=== PATIENT | female | born 1930 | race Caucasian/White ===

== ENCOUNTER 2016-10-17 11:18 | Inpatient (IN) | payer MEDICARE ==
[2016-10-17 11:38] LABS: Hematocrit 33 % (35-47); Hemoglobin 10.5 g/dl (12.0-16.0); Mean Corpuscular HGB Conc 32 g/dl (31-36); Mean Corpuscular Hemoglobin 30 pg (27-31); Mean Corpuscular Volume 92 fL (80-97); Mean Platelet Volume 8 um3 (7.4-10.4); Red Blood Count 3.54 10^6/ul (4.0-5.4); Red Cell Distribution Width 16 % (10.5-15); White Blood Count 15.1 10^3/ul (3.5-10.8)
[2016-10-17 11:41] LABS: Add Diff/Slide Review? Slide Review Added; Comments Flag Yes
[2016-10-17 11:56] LABS: Albumin 3.5 g/dL (3.2-5.2); BUN/Creatinine Ratio 19.7 (8-20); Calcium 8.7 mg/dL (8.6-10.3); EGFR Non-African American 36.6 (>60); Globulin 3.2 g/dL (2-4); Potassium 3.9 mmol/L (3.5-5.0); Total Bilirubin 0.7 mg/dL (0.2-1.0); Total Protein 6.7 g/dL (6.4-8.9)
[2016-10-17 11:57] LABS: Troponin I 0.01 ng/mL (<0.04)
--- NOTE | 2016-10-17 12:03 | RAD ---
INDICATION: Stroke symptoms COMPARISON: None. TECHNIQUE: Contiguous axial sections of the brain were obtained from the skull base to the vertex without contrast. FINDINGS: Evaluation is limited due to patient motion artifact. The ventricles exhibit mild symmetric involutional changes. Involving the white matter of the left frontal lobe there is an ill-defined area of focal hypoattenuation measuring 1.7 x 3.8 cm (image 18 of 32). There is an septal malacia involving the cortex of the frontal parietal junction on the left (image 20 of 32). Involving the right subinsular ribbon there is loss of jeffery-white matter differentiation (image 16 of 32). There is no definite extra-axial hemorrhage. There is a mild degree of hyperostosis frontalis interna. The calvarium is otherwise intact. There is mild right and moderate left maxillary sinus mucosal thickening and mild mucosal thickening of the bilateral sphenoid sinuses and ethmoid air cells. IMPRESSION: 1. Age indeterminant 1.7 x 3.8 cm hypodensity involving the white matter of the left frontal lobe could represent an age indeterminate infarction. 2. There is loss of the jeffery-white matter differentiation involving the right subinsular cortex. A potential acute to subacute infarction is not excluded based on this CT imaging. 3. The encephalomalacia involving the cortex at the left frontal parietal junction as a more chronic appearance. 4. There is no definite extra-axial hemorrhage. 5. There is no prior imaging of the brain available for comparison so the chronicity of the above findings lacks certainty. If the patient is exhibiting focal neurologic deficits MRI of the brain is recommended.
--- NOTE | 2016-10-17 12:17 | RAD ---
INDICATION: Altered mental status COMPARISON: None. TECHNIQUE: Single AP portable view of the chest was obtained. FINDINGS: Image quality is compromised due to the relative inferiority of a portable chest x-ray. There is mild to moderate cardiomegaly. The pulmonary vasculature is engorged and indistinct. Lungs are otherwise adequately aerated. Visualized bones are normal for the patient's age. IMPRESSION: In the correct clinical setting these portable chest x-ray findings could be compatible with mild cardiogenic pulmonary edema.
[2016-10-17 13:27] LABS: Urine Bacteria Absent (Absent); Urine Bilirubin Negative (Negative); Urine Glucose Negative (Negative); Urine Nitrite Negative (Negative)
[2016-10-17] MEDS ORDERED: Aspirin SUPP* 300 MG PR ONE (14:01)
[2016-10-17] MEDS ORDERED: Dextrose 50% Syringe 50 ML* 25 GM/50 ML SYRINGE IV PUSH PRN (14:32)
[2016-10-17 14:56] LABS: C Reactive Protein 6.12 mg/L (< 5.00)
--- NOTE | 2016-10-17 15:24 | ED ---
jarod Jay Timothy, scribed for Stan Murphy MD on 10/17/16 at 1147 . Neurological HPI - HPI Summary HPI Summary: Level V Caveat, Pt is largely unresponsive and is a poor historian. Krista Gracia is an 86 yo female presenting to [facility] as unresponsive. She was found in her bed. She received coumadin [employer]. She is moving her right leg/ arm with no movement on the left side.She was last seen going to the bathroom at 0300 this morning. Her Hx includes DM II, HLD, HTN. She lives with family. - History of Current Complaint Stated Complaint: POSS STROKE Time Seen by Provider: 10/17/16 11:31 Hx Obtained From: Patient Hx From Patient Unobtainable Due To: Other - unresponsive Onset/Duration: Sudden Onset Timing: Constant Onset Severity: Moderate Current Severity: Moderate Character: Other: - unresponsive - Allergy/Home Medications Allergies/Adverse Reactions: Allergies Allergy/AdvReac Type Severity Reaction Status Date / Time No Known Allergies Allergy Verified 10/09/14 09:45 PMH/Surg Hx/FS Hx/Imm Hx Endocrine/Hematology History: Reports: Hx Diabetes - TYPE 2 Cardiovascular History: Reports: Hx Hypercholesterolemia, Hx Hypertension - WELL CONTROLLED Sensory History: Reports: Hx Cataracts - BILATERAL, Hx Contacts or Glasses - GLASSES Denies: Hx Hearing Aid Opthamlomology History: Reports: Hx Cataracts - BILATERAL, Hx Contacts or Glasses - GLASSES - Cancer History Hx Chemotherapy: No Hx Radiation Therapy: No - Surgical History Surgery Procedure, Year, and Place: [facility] 30 YRS AGO [place]. HYSTERECTOMY [place]. LEFT KNEE SCOPING [place] 1999 Hx Anesthesia Reactions: No Infectious Disease History: No Infectious Disease History: Denies: Traveled Outside the [place] in Last 30 Days - Family History Known Family History: Positive: Cardiac Disease Negative: Hypertension, Diabetes - Social History Alcohol Use: None Substance Use Type: Reports: None Smoking Status (MU): Never Smoked Tobacco Review of Systems - ROS Summary Review of Systems Summary: LEVEL V CAVEAT: PT IS LARGELY UNRESPONSIVE AND UNABLE TO REVIEW SYSTEMS. Neurological: Other - unresponsive All Other Systems Reviewed And Are Negative: No Physical Exam - Summary Physical Exam Summary: LEVEL V CAVEAT: PT IS UNRESPONSIVE Triage Information Reviewed: Yes Vital Signs On Initial Exam: Initial Vitals Temp Pulse Resp BP Pulse Ox 96.8 F 65 23 162/79 96 10/17/16 11:25 02/12/17 11:25 10/17/16 11:25 10/17/16 11:25 10/17/16 11:25 Vital Signs Reviewed: Yes Appearance: Positive: No Pain Distress, Ill-Appearing - UNRESPONSIVE, UNABLE TO FOLLOW COMMANDS. Flacid on left side, Obese Skin: Positive: Warm, Skin Color Reflects Adequate Perfusion, Dry Head/Face: Positive: Normal Head/Face Inspection Neurological: Positive: Other - flacid on left side Psychiatric: Positive: Patient Uncooperative for Exam - unresponsive Diagnostics - Vital Signs Vital Signs Temp Pulse Resp BP Pulse Ox 10/17/16 11:25 96.8 F 65 23 162/79 96 - Laboratory Lab Results: Lab Results 10/17/16 Range/Units 11:30 WBC 15.1 H (3.5-10.8) 10^3/ul RBC 3.54 L (4.0-5.4) 10^6/ul Hgb 10.5 L (12.0-16.0) g/dl Hct 33 L (35-47) % MCV 92 (80-97) fL MCH 30 (27-31) pg MCHC 32 (31-36) g/dl RDW 16 H (10.5-15) % Plt Count 230 (150-450) 10^3/ul MPV 8 (7.4-10.4) um3 Neut % (Auto) 81.7 (38-83) % Lymph % (Auto) 11.1 L (25-47) % [place] % (Auto) 4.7 (1-9) % Eos % (Auto) 0.3 (0-6) % Baso % (Auto) 2.2 H (0-2) % Absolute Neuts (auto) 12.4 H (1.5-7.7) 10^3/ul Absolute Lymphs (auto) 1.7 (1.0-4.8) 10^3/ul Absolute Monos (auto) 0.7 (0-0.8) 10^3/ul Absolute Eos (auto) 0 (0-0.6) 10^3/ul Absolute Basos (auto) 0.3 H (0-0.2) 10^3/ul Absolute Nucleated RBC 0.05 10^3/ul Nucleated RBC % 0.3 Result Diagrams: 10/17/16 11:30 10/17/16 11:30 Lab Statement: Any lab studies that have been ordered have been reviewed, and results considered in the medical decision making process. - Radiology CXR Xray Interpretation: Positive (See Comments) - IMPRESSION: In the correct clinical setting these portable chest x-ray findings could be compatible with mild cardiogenic pulmonary edema. Radiology Interpretation Completed By: Radiologist - CT Brain CT Interpretation: Positive (See Comments) - IMPRESSION: 1. Age indeterminant 1.7 x 3.8 cm hypodensity involving the white matter of the left frontal lobe could represent an age indeterminate infarction. 2. There is loss of the jeffery- white matter differentiation involving the right subinsular cortex. A potential acute to subacute infarction is not excluded based on this CT imaging. 3. The encephalomalacia involving the cortex at the left frontal parietal junction as a more chronic appearance. 4. There is no definite extra-axial hemorrhage. 5. There is no prior imaging of the brain available for comparison so the chronicity of the above findings lacks certainty. If the patient is exhibiting focal neurologic deficits MRI of the brain is recommended. CT Interpretation Completed By: Radiologist - EKG 1145 Cardiac Rate: NL EKG Rhythm: Sinus Rhythm EKG Interpretation: NSR @ 61 BPM, normal EKG NIH Scale - NIH Scale Level of Consciousness: Repeated or Painful Stimulation Ask Patient the Month and His/Her Age: Neither Correct/Aphasic Ask Pt to Open/Close Eyes and Silverlight Developer/Release Non-Paretic Hand: Neither Correctly Best Gaze (Only Horizontal Eye Movement): Normal Visual Field Testing: No Visual Loss Facial Paresis-Pt to Smile & Close Eyes or Grimace Symmetry: Normal/Symmetrical Motor Function - Right Arm: Effort Against [place] Motor Function - Left Arm: No Movement Motor Function - Right Leg: Effort Against [place] Motor Function - Left Leg: No Movement Limb Ataxia-Must be out of Proportion to Weakness Present: Absent Sensory (Use Pinprick to Test Arms/Legs/Trunk/Face): Pinprick Less on Affected Best Language (Describe Picture, Name Items): Mute/Global Aphasia Dysarthria (Read Several Words): Unintelligible or Mute Extinction and Inattention: No Abnormality Total Score: 24 Course/Dx - Course Assessment/Plan: Krista Gracia is an 86 yo female BIBA to [facility] due to unresponsivenes. She really wouldn't follow commands for me but moved her right side spontaneously. Sometimes she opened her eyes but not to command. After CT she was a bit brighter and seemed to follow commands some. After review of her imaging studies and lab reports, and discussion with Dr. Worley, and consult with Dr. Blackmon, she will be admitted to [place] - Diagnoses Provider Diagnoses: CVA (cerebral vascular accident) - Physician Notifications Discussed Care of Patient With: 1256 - Dr. Worley (neurologist) - Discussed Pt condition, agrees to evaluate Pt. 1330 - Dr. Blackmon (hospitalist) - Discussed Pt condition, will admit Pt. - Critical Care Time Critical Care Time: 30-74 min Discharge - Discharge Plan Condition: Stable Disposition: ADMITTED TO [facility] The documentation as recorded by the jarod valente Timothy accurately reflects the service I personally performed and the decisions made by me, Stan Murphy MD.
[2016-10-17] MEDS: Insulin LISPRO* 1 UNITS UNIT SUBCUT SCH (18:24)
--- NOTE | 2016-10-17 18:33 | RAD ---
HISTORY: Mental status COMPARISONS: Same day CT of the brain that shows loss of jeffery-white matter differentiation the right hemisphere TECHNIQUE: The following sequences were obtained of the head: Sagittal T1-weighted images, axial T2-weighted images, axial FLAIR images, axial susceptibility weighted images, axial T1-weighted images. Additionally, axial diffusion-weighted images were obtained with calculated apparent diffusion coefficients.. FINDINGS: HEMORRHAGE: There is no evidence of extra-axial hemorrhage. MASSES/SHIFT: There is no mass or shift. EXTRA-AXIAL SPACES/MENINGES: There are no extra-axial fluid collections. SULCI AND VENTRICLES: There are symmetric involutional changes appropriate for the patient's age. CEREBRUM: Diffusion-weighted imaging shows a large right hemisphere infarction involving the frontal, parietal and temporal lobes in the distribution of the right MCA. There is an septal malacia involving the left frontal and parietal lobes. BRAINSTEM: There are no focal parenchymal abnormalities. CEREBELLUM: There are no focal parenchymal abnormalities. The cerebellar tonsils are normal in size and position. SELLA: The sella is normal. PINEAL: The pineal region is clear. CP ANGLE/TEMPORAL BONES: The labyrinthine structures are grossly normal. VESSELS: Normal flow-voids are noted within the visualized vertebral vasculature. DIFFUSION ABNORMALITIES: There are no diffusion abnormalities. PARANASAL SINUSES/MASTOIDS: The paranasal sinuses are clear. ORBITS: The orbits are unremarkable. BONES AND SOFT TISSUE: No bone or soft tissue abnormalities are noted. 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
--- NOTE | 2016-10-17 20:24 | CONS ---
NEUROLOGY CONSULTATION: DATE OF CONSULT: 10/17/16 REQUESTING PROVIDER: Dr. Rene Murphy in the emergency department. REASON FOR CONSULT: Stroke. HISTORY OF PRESENT ILLNESS: Krista Gracia is an 86-year-old woman with a history of diabetes, hypertension, and atrial fibrillation who was recently taken off warfarin 2 weeks ago due to epistaxis requiring transfusion, who was in her usual state of health yesterday. Per her son and [id number] who were at the bedside, she was last heard to be going to the bathroom with her walker at approximately 3 a.m. this morning. They looked in on her at approximately 8:30, but it appeared that she was still sleeping and then when she had not gotten up at approximately 10 a.m., they went in to try to wake her and realized they could not do so and called 911. On arrival here, she was found to have left hemiparesis and has been poorly responsive. Apparently, approximately 2 weeks ago, she developed significant epistaxis that was difficult to control with repeated packing and other procedures done by Dr. Harrison in [place]. Her warfarin was discontinued and she was actually admitted to [facility] because of this epistaxis. She eventually required 2 units of blood when her hemoglobin went down to 7 and she also required a recent transfusion of iron. Yesterday, however, she was acting normally per her son and he was optimistic that she was getting back on the right track. PAST MEDICAL HISTORY: 1. Diabetes. 2. Hypertension. 3. Atrial fibrillation. 4. 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 MEDICATIONS: 1. Aspirin 81 mg daily. 2. Vitamin D 2 tablets at bedtime. 3. Metformin 850 mg q.a.m. 4. Diltiazem 360 mg daily. 5. Simvastatin 20 mg daily. ALLERGIES: No known drug allergies. FAMILY HISTORY: Her mother from a stroke. There is a family history of cancers as well. SOCIAL HISTORY: She is a nonsmoker and nondrinker. She lives with her son and [id number] who are her healthcare proxies. She has an advanced directive, which indicates she is a do not resuscitate and in discussion with her family today also would not want to be intubated. REVIEW OF SYSTEMS: As per HPI. Otherwise negative. PHYSICAL EXAM: Vital Signs: Temperature 98.1, blood pressure of 162/79 on arrival and currently 153/93. Heart rate is 58. Oxygen saturation is 97% on nasal cannula. EKG is reviewed and shows that she is in a normal sinus rhythm currently. On general examination, she is an elderly appearing woman lying with her eyes closed. She does not open her eyes to voice or pain, but is noted to sometimes open them spontaneously. Her heart revealed a regular rate and rhythm with no murmurs, rubs, or gallops. Lungs are clear to auscultation anteriorly. There were no obvious carotid bruits. She has lower extremity edema. On neurologic exam, she does not open her eyes to command and is nonverbal. She does not follow commands to stick out her tongue. She has a right gaze preference, which cannot be overcome with the oculocephalic maneuver. There was no obvious blink to threat in her visual jacob. Pupils were equal, round, and reactive from 4 to 2 mm bilaterally. There was left lower facial weakness with flattening of the nasolabial fold. On motor examination, she had a flaccid hemiparesis in the left upper extremity with no withdrawal to noxious stimulation. In the left lower extremity, she had triple flexion response to noxious stimulation and with attempt for tone to be tested. She actively resisted the examiner moving her right upper and lower extremities without any apparent weakness on that side. She briskly responded to noxious stimulation in the right upper and lower extremities and grimaced to pain with noxious on the left. Coordination could not be tested. Her reflexes were 2+ in the upper and lower extremities, absent at the ankles with a briskly upgoing toe on the left. DIAGNOSTIC STUDIES/LAB DATA: Laboratory data reviewed includes a CBC notable for white count of 15.1 with 12.4 absolute neutrophil count, hemoglobin of 10.5 , hematocrit of 33 and normal platelet count. INR is 0.93. Chemistry panel notable for creatinine of 1.37, BUN of 27, glucose of 135, and a slightly low AST of 12. Urinalysis is negative for infection. Noncontrast head CT was personally reviewed and shows an area of hypodensity in the right insula, but there is also diffuse loss of the jeffery-white junction in the right MCA territory involving the frontal and parietal regions. In addition , there is a questionable dense right MCA sign in the sylvian fissure. IMPRESSION: Krista Gracia is an 86-year-old woman with a history of atrial fibrillation, currently not on warfarin due to recent epistaxis requiring transfusion, who presents with left hemiparesis and right gaze preference consistent with a large right hemispheric stroke. She appears to have some early changes suggestive of stroke on her CT scan and was also last heard to be normal greater than 3 hours ago, therefore, was not a candidate for TPA. She was last seen normal more than 6 hours previously and is not a candidate for any advanced therapy such as endovascular intervention. In addition, her renal function is somewhat depressed and I do not think it will change house attendant to get a CT angiogram and so, she will be admitted to the hospital for further care. She will undergo a carotid ultrasound and we should get a repeat CAT scan tomorrow to further assess the size of her right hemispheric stroke which will help us in further guiding the family in decision making. At this time, it appears that she suffered a large stroke, which may be devastating for her. She can be started on aspirin IN at this time. She should come in on telemetry monitoring and have an echocardiogram at this time unless the family decides not to pursue full care for her. Most likely mechanism is cardioembolic in nature given her history of atrial fibrillation and recent discontinuation of anticoagulation. I discussed briefly the patient's wishes with the family and she has expressed that she would not want to be resuscitated. We also discussed whether she has ever expressed her views on whether she would want to be ventilated and they feel that she would not want this either. This was communicated to the hospitalist, VIOLETA Coe, who will be admitting the patient. Thank you for this consultation. I will follow the patient along during her hospital course. [id number]/[facility] #: [id number] NA
--- NOTE | 2016-10-17 20:41 | HP ---
ADMISSION HISTORY AND PHYSICAL: DATE OF ADMISSION/DICTATION: 10/17/16 PRIMARY CARE PROVIDER: Dr. Cruz. CONSULTING NEUROLOGIST: Dr. Worley. ADMITTING PROVIDER: VIOLETA Smith SUPERVISING PHYSICIAN: Dr. Lisa Dominguez. * (DICTATED BY VIOLETA SMITH) CHIEF COMPLAINT: Unresponsiveness. HISTORY OF PRESENT ILLNESS: This is an 86-year-old female with a history of paroxysmal atrial fibrillation, saq-juiosqq-qclqyghkv diabetes, hypertension, hyperlipidemia, and coronary artery disease without history of MA, who presents after her family was unable to awake her this morning. The patient was last seen normal at approximately 3 a.m. when her son and gmlmrqvu-ki-uoi heard her get up to go to the bathroom and she is able to ambulate independently with her rolling walker. At approximately 8 o'clock or so this morning, they checked on her and she seemed to be sleeping and then by about 9 or 10 o'clock this morning when breakfast was prepared, they went in to wake her up and she was not responsive. EMS was subsequently called and the patient was brought to the emergency department for further evaluation. The patient was recently hospitalized at [facility] due to severe epistaxis and required a blood transfusion and iron infusions. She was anticoagulated for her history of AFib, but her Coumadin was discontinued due to the severity of these nosebleeds. This occurred about 2 weeks ago. She has otherwise been in good health according to her family and states that yesterday she was up and around and feeling quite well. She has had no other recent illnesses or acute complaints. The patient has had a prior CVA that presented with right-sided weakness and she had resolved nearly completely following that event. She currently lives with her son and evkazhat-nz-gwr. PAST MEDICAL HISTORY: 1. Paroxysmal atrial fibrillation, previously anticoagulated with Coumadin, but discontinued after severe epistaxis. 2. History of mild coronary artery disease per drum sander without history of MA or PCI. 3. Chronic kidney disease, stage 3. 4. Hypertension. 5. Hyperlipidemia. 6. Pqy-goxjcdj-dfpkfchsl diabetes. PAST SURGICAL HISTORY: 1. Left knee surgery. 2. Hysterectomy. 3. Left breast benign lumpectomy. 4. Tonsillectomy. 5. Cholecystectomy. 6. Cataracts. HOME MEDICATIONS: 1. Iron 65 mg p.o. daily. 2. Aspirin 81 mg p.o. daily. 3. Vitamin D3 2000 units p.o. daily. 4. Diltiazem 360 mg p.o. daily. 5. Metformin 850 mg p.o. daily. 6. Simvastatin 200 mg p.o. daily. SOCIAL HISTORY: The patient lives with her son and ephljrpz-hk-qwh. No history of smoking or regular alcohol consumption. REVIEW OF SYSTEMS: Unable to obtain review of systems from the patient. Please see HPI. PHYSICAL EXAMINATION GENERAL: This is an elderly female accompanied by multiple family members, who seems to be lying comfortably, but largely unresponsive in a hospital stretcher. INITIAL VITAL SIGNS: Temperature 96.8 degrees Fahrenheit, pulse 65 beats per minute, respiratory rate 23 per minute, oxygen saturation 96% on 2 L, and blood pressure 162/79 mmHg. HEENT: Head is normocephalic, atraumatic. Mucous membranes are significantly dry. NECK: Supple, free of lymphadenopathy. No JVD appreciated. RESPIRATORY: Lungs are clear to auscultation without wheezes, crackles, or rhonchi. CARDIOVASCULAR: Heart has a regular rate and rhythm without murmurs, rubs, or gallops. ABDOMEN: Soft with bowel sounds present. NEURO: The patient opens her eyes once during her exam and looks around the room, but does not speak. 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 Her left side appears to be flaccid. Unable to perform remainder of neuro exam. DIAGNOSTIC STUDIES/LAB DATA: CBC shows white blood cell count of 5100, hemoglobin of 10.5 g/dL, and a platelet count of 230,000. INR of 0.93. Comprehensive metabolic panel shows a sodium of 138 mmol/L, potassium 3.9 mmol/L , BUN of 27, creatinine 1.37. Random glucose of 135 mg/dL. Transaminases and total bilirubin are within normal limits. Troponin negative at 0.01. Urinalysis is significant for 1+ blood, but otherwise unremarkable. Imaging: Chest x-ray demonstrates some mild cardiomegaly and perhaps some mild pulmonary venous congestion. No other acute infiltrates or other acute process appreciated. CT of the brain shows an old infarct in the left frontal region. There is evidence of marked parietal swelling with absence of foci providing evidence of likely a large MCA ischemic stroke. EKG shows a sinus rhythm without evidence of ischemia. ASSESSMENT AND PLAN: This is an 86-year-old female with paroxysmal atrial fibrillation, chronic kidney disease, hypertension, hyperlipidemia, non-insulin - dependent diabetes, who presents unresponsive with evidence of large right- sided cerebrovascular accident. 1. Cerebrovascular accident - neurologist, Dr. Worley, has evaluated the patient in the emergency department. She is unfortunately outside the window for tPA by a significant amount. There is evidence of significant right parietal swelling in the distribution of the right middle cerebral artery notable on CT. Provide rectal aspirin at this time. The patient's deficits are quite severe. Her exam seems to be waxing and waning, but at the time of my exam, she was able to follow some commands but is not alert and does seem to have flaccid paralysis on the left side. The patient's son and wwyiynzh-ad-gjx who are her healthcare proxies are present at bedside and confirmed DNR and DNI status. Discussed prognosis in some detail. The patient has made her expressed wishes known that she would not want any artificial nutrition. We will plan to continue with rectal aspirin at this time, and if her level of alertness seems to improve, we will request a formal swallow evaluation. At this time, we will maintain maintenance fluids. We will hold all antihypertensives and maintain the bed flat in order to promote cerebral perfusion. We will evaluate with carotid ultrasound and echocardiogram and maintain on continuous telemetry. 2. Paroxysmal atrial fibrillation - anticoagulation was recently discontinued about 2 weeks ago after severe epistaxis. Her cerebrovascular accident is likely embolic in origin. We will monitor on telemetry. We will hold any antihypertensive at this time and she does appear to be in a normal sinus rhythm. 3. Leukocytosis - the patient has no evidence of acute infection. This might just be a leukemoid reaction to the acute situation. We will not empirically start antibiotics. We will plan to repeat labs tomorrow. We will add on a CRP and procalcitonin and if significantly elevated, we will be diligent to evaluate for sources of infection. 4. Diabetes - we will check fingersticks every 6 hours to maintain appropriate glycemic control and cover with sliding scale insulin as needed to avoid severe hyperglycemia. 5. Hypertension - holding antihypertensives to maintain systolic pressures less than 185 mmHg. 6. Hyperlipidemia. 7. Code status - the patient is DNR/DNI with known wishes to avoid artificial nutrition. 8. Healthcare proxy is her son, Tab Gracia, with the backup proxy being Deepa Gracia and completed MOLST form with both of them at the time of admission. 9. DVT prophylaxis: We will order SCDs, but avoid any chemical prophylaxis in the setting of large cerebrovascular accident. DISPOSITION: The patient is being admitted inpatient for CVA. Prognosis appears to be quite poor at this time. Anticipate length of stay to be greater than 2 days. VIOLETA SMITH CC: Dr. Cruz* [id number]/[facility] #: [id number] NA
[2016-10-18] MEDS: Insulin LISPRO* 1 UNITS UNIT SUBCUT SCH ×4 (01:17→18:17)
[2016-10-18 07:14] LABS: Hematocrit 29 % (35-47); Hemoglobin 9.2 g/dl (12.0-16.0); Mean Corpuscular HGB Conc 32 g/dl (31-36); Mean Corpuscular Hemoglobin 30 pg (27-31); Mean Corpuscular Volume 92 fL (80-97); Mean Platelet Volume 8 um3 (7.4-10.4); Red Cell Distribution Width 16 % (10.5-15); White Blood Count 10.4 10^3/ul (3.5-10.8)
[2016-10-18 07:15] LABS: Add Diff/Slide Review? Slide Review Added; Comments Flag Yes
[2016-10-18 07:31] LABS: BUN/Creatinine Ratio 17.6 (8-20); Calcium 8.1 mg/dL (8.6-10.3); EGFR African American 52.3 (>60); EGFR Non-African American 40.6 (>60)
--- NOTE | 2016-10-18 07:44 | PN ---
Subjective Date of Service: 10/18/16 Interval History: Pt unresponsive on evaluation, appears comfortable. Per son she seemed to respond to him this morning when he asked "are you warm enough" and he said she nodded. Right arm movement noted. The son and I discussed the goal for care and he would like to see how she does the next 24 hours and if she continues to be unresponsive tomorrow or she clinically starts to decline he would like comfort care. He does not want her to go down for CT brain today as it will not gear changer. He asks for no aggressive measures per her wishes on the MOLST form. Objective Active Medications: Aspirin (Aspirin Supp*) 300 mg OK DAILY [facility] Dextrose (D50w Syringe 50 Ml*) 12.5 gm IV PUSH .FOR FS < 60 - SS PRN PRN Reason: FS < 60 Lactated Ringer's (Lactated Ringers 1000 Ml Bag*) 1,000 mls @ 100 mls/hr IV PER RATE [facility] Last Admin: 10/18/16 04:18 Dose: 100 mls/hr Insulin Human Lispro (Humalog*) 0 units SUBCUT Q6HR [facility] PRN Reason: Protocol Last Admin: 10/18/16 05:40 Dose: Not Given Vital Signs 10/17/16 10/17/16 10/17/16 14:30 15:11 15:54 Temperature 98.8 F 97.6 F Pulse Rate 61 59 62 Respiratory 21 20 26 Rate Blood Pressure 183/73 165/78 137/92 (mmHg) O2 Sat by Pulse 98 98 Oximetry 10/17/16 10/17/16 10/17/16 16:17 16:20 20:00 Temperature 99.2 F Pulse Rate 62 Respiratory 26 22 30 Rate Blood Pressure 137/92 (mmHg) O2 Sat by Pulse 98 Oximetry 10/17/16 10/17/16 10/18/16 20:58 23:43 03:48 Temperature 99.4 F 98.3 F 97.8 F Pulse Rate 70 72 77 Respiratory 20 19 20 Rate Blood Pressure 155/72 137/67 151/60 (mmHg) O2 Sat by Pulse 95 95 98 Oximetry Oxygen Devices in Use Now: Nasal Cannula Appearance: obese elderly female laying unresponsive in bed with eyes closed in NAD. Eyes: No Scleral Icterus, PERRLA Ears/Nose/Mouth/Throat: NL Teeth, Lips, Gums, Mucous Membranes Moist Neck: NL Appearance and Movements; NL JVP Respiratory: Symmetrical Chest Expansion and Respiratory Effort, Clear to Auscultation Cardiovascular: NL Sounds; No Murmurs; No JVD, RRR, No Edema Abdominal: NL Sounds; No Tenderness; No Distention Extremities: No Edema Skin: No Rash or Ulcers, No Nodules or Sclerosis Neurological: - - is not responded to verbal or painful stimuli; noted right arm movement Lines/Tubes/Other Access: Clean, Dry and Intact Peripheral IV Result Diagrams: 10/18/16 06:59 10/18/16 06:59 Additional Lab and Data: Lab Results 10/17/16 Range/Units 11:30 WBC 15.1 H (3.5-10.8) 10^3/ul RBC 3.54 L (4.0-5.4) 10^6/ul Hgb 10.5 L (12.0-16.0) g/dl Hct 33 L (35-47) % MCV 92 (80-97) fL MCH 30 (27-31) pg MCHC 32 (31-36) g/dl RDW 16 H (10.5-15) % Plt Count 230 (150-450) 10^3/ul MPV 8 (7.4-10.4) um3 Neut % (Auto) 81.7 (38-83) % Lymph % (Auto) 11.1 L (25-47) % [place] % (Auto) 4.7 (1-9) % Eos % (Auto) 0.3 (0-6) % Baso % (Auto) 2.2 H (0-2) % Absolute Neuts (auto) 12.4 H (1.5-7.7) 10^3/ul Absolute Lymphs (auto) 1.7 (1.0-4.8) 10^3/ul Absolute Monos (auto) 0.7 (0-0.8) 10^3/ul Absolute Eos (auto) 0 (0-0.6) 10^3/ul Absolute Basos (auto) 0.3 H (0-0.2) 10^3/ul Absolute Nucleated RBC 0.05 10^3/ul Nucleated RBC % 0.3 Microbiology and Other Data: Microbiology 10/17/16 14:35 Nasal Screen MRSA (PCR)(EVY) - Final Nasal Mrsa Positive Assess/Plan/Problems-Billing Assessment: 86 yo female with a PMH of paroxysmal afib recently taken off AC secondary to severe epistaxis, hx prior CVA, HTN, CKD, Dm-2 who presented to the emergency department 10/17 unresponsive found to have a large hemispheric infarction in the right MCA - Patient Problems (1) CVA (cerebral vascular accident) Comment: - MRI linda showing a large hemispheric infarction in the right MCA - TTE, carotid u/s pending - Neuro checks - Suction prn - pt is at risk for not managing her secretions. - continue rectal ASA (2) Afib Comment: - rate currently controlled - Metoprolol prn (3) HTN (hypertension) Comment: - not currently on BP meds at home. SBP 130-140's. (4) CKD (chronic kidney disease) Comment: at baseline (5) DNR (do not resuscitate) Comment: DNI/No artifical nutrition (6) DVT prophylaxis Status and Disposition: inpatient with CVA.
[2016-10-18] MEDS: Aspirin SUPP* 300 MG PR SCH (09:20)
[2016-10-18] MEDS ORDERED: Metoprolol Tartrate IV* 1 MG/ML 5 ML VIAL IV PRN (11:47)
--- NOTE | 2016-10-18 15:01 | ECHO ---
Patient: LAISHA CHILD [facility] Rec#: [id number] : 1930 Date: 10/18/2016 Age: 86y Height: 172.7 cm / 68.0 in Weight: 108.9 kg / 240.0 lbs Sex: F BSA: 2.21 Room#: 437 Admit Date#: 10/17/2016 Type: Inpatient Referring: Saran Velázquez Reading: Cuate Zarco MD Plastic Tool Maker: Fatmata Vera RN RDCS CC: Chas Cruz MD Transthoracic Echocardiogram Indication: CVA BP: 151/60 HR: 61 Rhythm: NSR with PVCs Findings History: CAD, PAF, HTN, dyslipidemia, DM, CKD Technical Comments: The study is technically limited due to patient body habitus. The study was technically limited due to the patient's inability to lay in the left lateral decubitus position. Completed at 1400. Left Ventricle: The left ventricular chamber size is normal. There is diffuse global hypokinesis of the left ventricle. Left ventricular systolic function is at the lower limits of normal. The estimated ejection fraction is 50-55%. Abnormal left ventricular diastolic filling is observed, consistent with impaired relaxation. Left Atrium: The left atrium is mildly dilated. Right Ventricle: The right ventricular chamber size and systolic function are within normal limits. Right Atrium: The right atrium is mildly dilated. Aortic Valve: The aortic valve is trileaflet. The aortic valve leaflets are mildly thickened. There is a trace of aortic regurgitation. There is no evidence of aortic stenosis. Mitral Valve: There is mitral annular calcification. The mitral valve leaflets are mildly thickened. There is mild mitral regurgitation. There is no evidence of mitral stenosis. Tricuspid Valve: The tricuspid valve leaflets are normal. There is mild tricuspid regurgitation. There is evidence of mild pulmonary hypertension. Pulmonic Valve: The pulmonic valve structure is not well visualized. There is a trace pulmonic regurgitation. There is no pulmonic stenosis. Pericardium: There is no significant pericardial effusion. A pericardial fat pad is visualized. Aorta: There is no dilatation of the ascending aorta. There is no dilatation of the aortic arch. The aortic root is normal in size. Pulmonary Artery: The main pulmonary artery is not well visualized. Venous: The inferior vena cava appears normal in size. There is a greater than 50% respiratory change in the inferior vena cava dimension. Conclusions Left ventricular systolic function is at the lower limits of normal. The estimated ejection fraction is 50-55%. There is diffuse global hypokinesis of the left ventricle. The right ventricular chamber size and systolic function are within normal limits. There is a trace of aortic regurgitation. There is no evidence of aortic stenosis. There is mild mitral regurgitation. There is mild tricuspid regurgitation. There is no significant pericardial effusion. Measurements Name Value Normal Range RVDdMajor (2D) 2.4 cm (2.2 - 4.4) RAd ISD 4CH 5.6 cm (3.4 - 4.9) RA (A4C)W 3.9 cm (2.9 - 4.6) IVSd (2D) 1 cm (0.6 - 1) LVPWd (2D) 1 cm (0.6 - 1) LVIDd (2D) 4.6 cm (3.6 - 5.4) LVIDs (2D) 3.7 cm - LV FS (2D) 20 % (25 - 45) Aortic Annulus 2.1 cm (1.4 - 2.6) Ao root diameter (2D) 3 cm (2.1 - 3.5) Ascending Ao 3 cm (2.1 - 3.4) Aortic arch 3.1 cm (1.8 - 3.4) LA dimension (AP) 2D 3.2 cm (2.3 - 3.8) LAd ISD 4CH 5.7 cm (2.9 - 5.3) LA ISD 4CH W 4.4 cm (2.5 - 4.5) Name Value Normal Range LA ESV SP 4CH (A/L) 52 ml - LA ESV SP 2CH (A/L) 89 ml - LA ESV BP (A/L) 69 ml - LA ESV BP (A/L) index 31 ml/m2 - LA ESV SP 4CH (MOD) 50 ml - LA ESV SP 2CH (MOD) 85 ml - Name Value Normal Range MV E-wave Vmax 0.78 m/sec - MV deceleration time 348 msec - MV A-wave Vmax 1.1 m/sec - MV E:A ratio 0.7 ratio - LV septal e' Vmax 0.06 m/sec - LV lateral e' Vmax 0.07 m/sec - LV E:e' septal ratio 13 ratio - LV E:e' lateral ratio 11.1 ratio - Name Value Normal Range AV Vmax 1.6 m/sec - AV peak gradient 10 mmHg - LVOT Vmax 0.99 m/sec - ABDIRIZAK Vmax 0.83 m/sec - Name Value Normal Range TR Vmax 2.9 m/sec - TR peak gradient 34 mmHg - RAP 3 mmHg - RVSP 37 mmHg - IVC diameter 1.8 cm - Name Value Normal Range PV Vmax 1.1 m/sec -
--- NOTE | 2016-10-18 17:07 | RAD ---
INDICATION: CVA. Carotid stenosis. COMPARISON: MRI brain same date TECHNIQUE: Transverse and longitudinal scans of the carotid and vertebral arteries were performed with jeffery scale, color Doppler, and spectral Doppler imaging. Stenosis criteria is based on flow velocities that correlate with visual internal carotid artery diameter (NASCET criteria) FINDINGS: Right carotid: There is scant calcific plaque involving the bifurcation. There is no spectral broadening. The peak systolic velocity of the internal carotid artery is 65 cm/s and the peak diastolic velocity 10 cm/s. The ICA/CCA ratio is calculated at 0.9. This corresponds to a less than 50% diameter stenosis. The actual degree of stenosis is closer to 0. Left carotid: There is scant calcific plaque involving the bifurcation. There is no spectral broadening. The peak systolic velocity of the internal carotid artery is 100 cm/s and the peak diastolic velocity 23 cm/s. The ICA/CCA ratio is calculated at 1.4. This corresponds to a less than 50% diameter stenosis. Right vertebral: Right vertebral waveforms are normal and the flow is antegrade. Left vertebral: Left vertebral waveforms are normal and the flow is antegrade. IMPRESSION: NO EVIDENCE OF A HEMODYNAMICALLY SIGNIFICANT STENOSIS. CPT II Codes: 3100F RS
[2016-10-19] MEDS: Insulin LISPRO* 1 UNITS UNIT SUBCUT SCH ×3 (00:26→12:05)
--- NOTE | 2016-10-19 03:28 | PN ---
PROGRESS NOTE: DATE OF EVALUATION: 10/18/16 - ROOM #437 HISTORY: There were no acute overnight events. The patient remains essentially as she was yesterday, minimally responsive but occasionally perking up and seeming to make eye contact in her right visual field. Her son thinks that she nodded yes to him when he asked if she was warm enough earlier this morning. MEDICATIONS: 1. Aspirin 300 mg p.o. daily. 2. Humalog sliding scale. 3. Lactated Ringer's 100 mL per hour. 4. Metoprolol 5 mg IV q.6 p.r.n. PHYSICAL EXAMINATION: Vital Signs: Temperature 97.8 with a T-max of 99.8 this morning at 7:30, blood pressure 150/75, heart rate is 73, and oxygen saturation 99% on room air. On general exam, she is an elderly appearing female, asleep in her bed with her head turned towards the left. She did not wake to loud voice or to sternal rub , but then did open her eyes when her right arm was moved. She did not follow commands to show me her thumb, but she did put up her right index finger. She appeared to be trying to protrude her tongue, but did not reliably follow this command either. She continues to have a right gaze preference that is not overcome by the oculocephalic maneuver. She has a left homonymous hemianopsia. There is left lower facial weakness and the left arm is plegic. She has normal to increased tone in the left lower extremity with a briskly upgoing toe and a triple flexion response to noxious stimulation. 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 She grimaces to noxious stimulation in the left upper and lower extremities, but less briskly than on the right. DATA: Her white count is down to 10.4 from 15.1 today. Her transthoracic echocardiogram shows that the left ventricular systolic function is at the lower limits of normal with an estimated EF of 50% to 55%. There is diffuse global hypokinesis of the left ventricle. A bubble study was not performed. She underwent MRI of the brain yesterday which confirms the presence of a large right MCA territory infarction without any hemorrhagic components. IMPRESSION: An 86-year-old woman with large right MCA stroke resulting in diminished level of consciousness as well as left hemiparesis and right gaze preference. Today, she is largely the same clinically as she was yesterday. I discussed with the family that one of the reasons for her depressed level of consciousness may be the fact that she now has bihemispheric stroke given that she had an old left frontal stroke in the past. She has been fairly clear in her wishes regarding resuscitation and intubation, but the family is now considering the possibility of artificial nutrition. I have explained that she has had a very large stroke and may not regain the level of alertness necessary to even participate with evaluation for swallowing study and if she does, it is very likely that she will have significant dysphagia. They will begin to think about whether they would want to place any kind of a feeding tube such as nasogastric tube or if they will go more towards comfort measures for her. I told them we could see how she does over the next 48 hours and be able to gauge things better at that point. They may benefit from palliative care consult at this point regardless. I will continue to follow her along. [id number]/[facility] #: [id number] NA
[2016-10-19] MEDS: Aspirin SUPP* 300 MG PR SCH (08:44)
--- NOTE | 2016-10-19 16:20 | PN ---
Progress Note - Progress Note Note: Family meeting with Son, Tab, HCP and several family members. Discussed grim prognosis and no chance of a meaningful recovery. Family all agreeable to comfort measures only. IVFs discontinued.
--- NOTE | 2016-10-19 17:36 | PN ---
Subjective Date of Service: 10/19/16 Interval History: patient continues to be mostly unresponsive with occasionally opening her eyes. per son she is less responsive today. Family meeting tonight with palliative care physician Dr. Castelan and decision was made for comfort care On exam pt is mostly unresponsive, opens eyes to some verbal and noxious stimuli but is not responsive and closes her eyes again. Family at bedside, weepy. Pt appears comfortable in NAD. Objective Vital Signs 10/18/16 10/19/16 10/19/16 20:00 00:04 04:19 Temperature 98.5 F 98.9 F 98.3 F Pulse Rate 72 72 64 Respiratory 26 20 16 Rate Blood Pressure 154/76 143/75 141/71 (mmHg) O2 Sat by Pulse 94 98 97 Oximetry 10/19/16 10/19/16 10/19/16 07:50 08:00 11:28 Temperature 98.3 F 98.6 F Pulse Rate 73 69 Respiratory 20 18 20 Rate Blood Pressure 163/70 165/74 (mmHg) O2 Sat by Pulse 98 97 Oximetry 10/19/16 16:04 Temperature 98.7 F Pulse Rate 68 Respiratory 20 Rate Blood Pressure 157/62 (mmHg) O2 Sat by Pulse 95 Oximetry Oxygen Devices in Use Now: Nasal Cannula Appearance: eldelry female laying in bed unresponsive; opens eyes spontaneuously Eyes: PERRLA Respiratory: Symmetrical Chest Expansion and Respiratory Effort, Clear to Auscultation Cardiovascular: NL Sounds; No Murmurs; No JVD, RRR, No Edema Abdominal: NL Sounds; No Tenderness; No Distention Neurological: - - opens eyes to nxious stimuli Lines/Tubes/Other Access: Clean, Dry and Intact Peripheral IV Result Diagrams: 10/18/16 06:59 10/18/16 06:59 Additional Lab and Data: Lab Results 10/17/16 Range/Units 11:30 WBC 15.1 H (3.5-10.8) 10^3/ul RBC 3.54 L (4.0-5.4) 10^6/ul Hgb 10.5 L (12.0-16.0) g/dl Hct 33 L (35-47) % MCV 92 (80-97) fL MCH 30 (27-31) pg MCHC 32 (31-36) g/dl RDW 16 H (10.5-15) % Plt Count 230 (150-450) 10^3/ul MPV 8 (7.4-10.4) um3 Neut % (Auto) 81.7 (38-83) % Lymph % (Auto) 11.1 L (25-47) % [place] % (Auto) 4.7 (1-9) % Eos % (Auto) 0.3 (0-6) % Baso % (Auto) 2.2 H (0-2) % Absolute Neuts (auto) 12.4 H (1.5-7.7) 10^3/ul Absolute Lymphs (auto) 1.7 (1.0-4.8) 10^3/ul Absolute Monos (auto) 0.7 (0-0.8) 10^3/ul Absolute Eos (auto) 0 (0-0.6) 10^3/ul Absolute Basos (auto) 0.3 H (0-0.2) 10^3/ul Absolute Nucleated RBC 0.05 10^3/ul Nucleated RBC % 0.3 Microbiology and Other Data: Microbiology 10/17/16 14:35 Nasal Screen MRSA (PCR)(EVY) - Final Nasal Mrsa Positive Assess/Plan/Problems-Billing Assessment: 86 yo female with a PMH of paroxysmal afib recently taken off AC secondary to severe epistaxis, hx prior CVA, HTN, CKD, Dm-2 who presented to the emergency department 10/17 unresponsive found to have a large hemispheric infarction in the right MCA - Patient Problems (1) CVA (cerebral vascular accident) Comment: - MRI linda showing a large hemispheric infarction in the right MCA - plan for comfort measures. (2) Comfort measures only status (3) DNR (do not resuscitate) Comment: comfort care (4) DVT prophylaxis Status and Disposition: inpatient with large CVA. Plan for comfort care measures
--- NOTE | 2016-10-19 20:35 | CONS ---
PALLIATIVE CARE CONSULTATION: DATE OF CONSULT: 10/19/16 PRIMARY CARE PHYSICIAN: Chas Cruz MD. REQUESTING PHYSICIAN FOR PALLIATIVE CARE CONSULTATION: Kelli Echevarria NP. HISTORY OF PRESENT ILLNESS: This is an 86-year-old female with a past medical history of atrial fibrillation, off anticoagulation; CAD; CKD stage III; hypertension; and diabetes who presented to the emergency room on the with unresponsiveness. The patient is normally independent of her ADLs and lives with her son. The son states that around 3 a.m. he heard her go to the bathroom and she tends to sleep in and they would check on her and they would hear her sleeping and then around 10 o'clock, they went to wake her up for breakfast and she was unresponsive at that time. She was brought to the emergency room for further evaluation. On arrival to the emergency room, the patient had a CAT scan done that showed marked parietal swelling with absence of foci providing evidence of a likely large MCA ischemic stroke. Initially, the patient's mental status was waxing and waning and on admission was able to follow some commands, but limited alertness and left-sided flaccid paralysis. The son, Tab Gracia, is the healthcare proxy, did change her MOLST to DNR/DNI on admission. Of note, the patient was on Coumadin for her atrial fibrillation as of 2 weeks ago, but had a significant nosebleed that required hospitalization at [place] and she required transfusion and she has been off Coumadin for the past 2 weeks. Since her admission, her mental status has deteriorated as the son and the daughter are both in the room today and saying that her alertness and responsiveness have been more depressed today. Yesterday , she was able to open her eyes and shake her head yes or no in response to questions and she was able to squeeze her left hand. Today, she has opened her eyes with minimal interactive or responsiveness. She has not done any tracking today as she was yesterday. Due to her minimally responsiveness, she has been unable to take any p.o. When I discussed her quality of life, they stated that she was very independent, did not want anyone to help her with her activities of daily living. She did not want anyone to ever help her with her ADLs, and that she did not want to go to a snf; and, when I discussed artificial nutrition, they stated that this was not something that she would ever want. I discussed my concern about her poor prognosis and the progression of her depressed mental status and the family is aware that her prognosis is grim and she may not survive this hospitalization. As mentioned, the patient does open her eyes, but unable to answer questions appropriately and is minimally responsive. PAST MEDICAL HISTORY: 1. Paroxysmal atrial fibrillation, off anticoagulation. 2. CAD. 3. CKD stage III. 4. Hypertension from hyperlipidemia. 5. Diabetes. INPATIENT HOSPITAL MEDICATIONS: 1. Aspirin 300 mg per rectal daily. 2. Lactated Ringer's 50 mL an hour. 3. Metoprolol IV 5 mg every 6 hours as needed for heart rate greater than 100. ALLERGIES: No known drug allergies. SOCIAL HISTORY: As mentioned, the patient was living with her son, Tab Gracia , who is the healthcare proxy and his . She was independent of her ADLs. She was not driving. Her MOLST form is DNR/DNI, limited medical interventions, with a trial of IV fluids. She has 8 children and, as mentioned, is currently living with her son. No history of tobacco, alcohol, or illicit drug use. REVIEW OF SYSTEMS: Unable to obtain due to the patient's unresponsiveness. PHYSICAL EXAM: Temperature 98.6, pulse rate 69, respiratory rate 20, oxygen saturation 97% on 2 L, blood pressure 165/74. General: The patient is unresponsive, does not awake to verbal or tactile stimuli, appears comfortable. Her son and her daughter are at the bedside. HEENT: Pupils are reactive, equal , and anicteric. Head is normocephalic. Oropharynx: Mucous membranes are dry. Cardiac: Regular rate and rhythm with a soft systolic murmur. Respiratory : Diminished breath sounds with poor respiratory effort. Abdomen: Soft, nondistended. Extremities: No clubbing, cyanosis, or edema. Neurologic: The patient is alert and oriented x0. She is able to squeeze her left hand. No other motor movement of her lower extremities or her left hand. DIAGNOSTIC STUDIES/LAB DATA: White count 10.4, hemoglobin 9.2, hematocrit 29, platelets 200. INR 0.93. Sodium 136, potassium 4, chloride 104, bicarb 28, BUN 22, creatinine 1.25, glucose 116. Radiographic data: Brain MRI shows large hemispheric infarction in the distribution of the right MCA. ASSESSMENT: This is an 86-year-old female with a past medical history of atrial fibrillation, off anticoagulation; chronic kidney disease who presents to the emergency room on the 12th being unresponsive. Her MRI findings have found a large hemispheric infarction in the distribution of the right MCA. She is minimally responsive. I spoke with the family at length regarding poor prognosis and that without IV hydration and artificial nutrition that her life expectancy is limited to a few days. The family would like to speak with the rest of their family members and re-convene regarding discontinuing her IV fluids and disposition plans if they are going to attempt to take her home with hospice with 24-hour care. I am going to meet back with them and the family at 4 o'clock today. Thank you for this consultation. I will follow along with you. PATIENT TIME: Greater than 90 minutes were spent doing this consultation, more than half the time spent in direct patient contact. CC: Chas Cruz MD* [id number]/[facility] #: [id number] MTDD
[2016-10-20] MEDS ORDERED: Morphine INJ* 2 MG/ML 1 ML CARPUJECT IV PRN (10:38)
[2016-10-20] MEDS ORDERED: Atropine 1% (ORAL/SL)* 15 ML BTL SL PRN (10:39)
[2016-10-20] MEDS ORDERED: LORazepam TAB(*) 1 MG PO PRN (10:39)
--- NOTE | 2016-10-20 10:43 | PN ---
Subjective Date of Service: 10/20/16 Interval History: patient laying in bed with eyes closed. unresponsive on my exam. py did open her eyes and daughter asked a question and the patient clearly nodded then fell unresponsive again. Patient appears very comfortable in NAD Objective Vital Signs 10/19/16 10/19/16 10/19/16 11:28 16:04 19:58 Temperature 98.6 F 98.7 F Pulse Rate 69 68 Respiratory 20 20 20 Rate Blood Pressure 165/74 157/62 (mmHg) O2 Sat by Pulse 97 95 Oximetry Appearance: eldelry female laying in bed in NAD. mostly unresponsive Eyes: No Scleral Icterus, PERRLA Respiratory: Symmetrical Chest Expansion and Respiratory Effort, Clear to Auscultation Cardiovascular: NL Sounds; No Murmurs; No JVD Result Diagrams: 10/18/16 06:59 10/18/16 06:59 Additional Lab and Data: Lab Results 10/17/16 Range/Units 11:30 WBC 15.1 H (3.5-10.8) 10^3/ul RBC 3.54 L (4.0-5.4) 10^6/ul Hgb 10.5 L (12.0-16.0) g/dl Hct 33 L (35-47) % MCV 92 (80-97) fL MCH 30 (27-31) pg MCHC 32 (31-36) g/dl RDW 16 H (10.5-15) % Plt Count 230 (150-450) 10^3/ul MPV 8 (7.4-10.4) um3 Neut % (Auto) 81.7 (38-83) % Lymph % (Auto) 11.1 L (25-47) % [place] % (Auto) 4.7 (1-9) % Eos % (Auto) 0.3 (0-6) % Baso % (Auto) 2.2 H (0-2) % Absolute Neuts (auto) 12.4 H (1.5-7.7) 10^3/ul Absolute Lymphs (auto) 1.7 (1.0-4.8) 10^3/ul Absolute Monos (auto) 0.7 (0-0.8) 10^3/ul Absolute Eos (auto) 0 (0-0.6) 10^3/ul Absolute Basos (auto) 0.3 H (0-0.2) 10^3/ul Absolute Nucleated RBC 0.05 10^3/ul Nucleated RBC % 0.3 Microbiology and Other Data: Microbiology 10/17/16 14:35 Nasal Screen MRSA (PCR)(EVY) - Final Nasal Mrsa Positive Assess/Plan/Problems-Billing Assessment: 86 yo female with a PMH of paroxysmal afib recently taken off AC secondary to severe epistaxis, hx prior CVA, HTN, CKD, Dm-2 who presented to the emergency department 10/17 unresponsive found to have a large hemispheric infarction in the right MCA - Patient Problems (1) CVA (cerebral vascular accident) Comment: - MRI linda showing a large hemispheric infarction in the right MCA - comfort measures only - pt will most likely within the next day or two. (2) Comfort measures only status Comment: - morphine, ativan prn (3) DNR (do not resuscitate) Comment: comfort care (4) DVT prophylaxis Status and Disposition: inpatient with large CVA. Plan for comfort care measures.
--- NOTE | 2016-10-20 14:15 | PN ---
Progress Note - Progress Note Note: Follow up palliative care note - Patient is comfortable in no acute distress. Family members at the bedside. Minimally responsive. Does open her eyes and nod no when asked if she has pain. Did require morphine this am.
--- NOTE | 2016-10-20 16:32 | PN ---
PROGRESS NOTE: DATE OF EVALUATION: 10/19/16 OVERNIGHT EVENTS: No acute overnight events. The family states that she seemed more alert last evening and was interacting with family members with some gestures, but today she would not awaken at first when they arrived this morning. Now, she has her eyes opened, but still seems less alert to them and they are discouraged by the way she appears today. MEDICATIONS: 1. Aspirin. 2. Metoprolol as needed. 3. Lactated Ringer's. PHYSICAL EXAMINATION: Temperature 98.6, blood pressure 165/74, heart rate 69, and oxygen saturation 97% on room air. On examination, she is an obese elderly woman, lying with her head towards the right in her hospital bed. She briefly directs her gaze towards the examiner when her name is called. She continues to have a right gaze preference and does not cross the midline. She has a left homonymous hemianopsia and left lower facial weakness. The left arm is plegic and the left leg continues to have some increased tone with a briskly upgoing toe. She withdraws to noxious in the proximal left upper extremity and has triple flexion response in the left lower extremity. She reliably closed her eyes to command twice, but did not follow any other simple commands. DATA: Carotid ultrasound was performed and showed no hemodynamically significant stenosis. IMPRESSION: An 86-year-old woman with large right MCA stroke in the setting of probable paroxysmal atrial fibrillation, off Coumadin for the past 2 weeks. Clinically, she appears largely the same to me, possibly a little worse today. I discussed with the family that again this is a large, devastating stroke. I let them know that even if she were to survive this, she would not be able to walk again and will likely not be able to swallow safely or participate with that evaluation. It sounds as though a palliative care consult has been completed and other family members are coming in to hear this information around 4 o'clock today. If the family decides to go with comfort measures, I would be in agreement with that. Overall, her prognosis is very poor. [id number]/[facility] #: [id number] [facility] HOSPITALNakita
[2016-10-21 05:26] VITALS: BP 137/58
--- NOTE | 2016-10-21 11:55 | PN ---
Subjective Date of Service: 10/21/16 Interval History: . Patient laying in bed in no acute distress. no morphine requirements. Per family she responded a little yesterday but mostly unresponsive and today she is not responding at all. per daughter her breathing pattern has changed and is having long pauses. Objective Active Medications: Atropine Sulfate (Atropine 1% (Oral/Sl)*) 2 drop SL Q2H PRN PRN Reason: DISCOMFORT Lorazepam (Ativan Tab(*)) 1 mg PO Q6H PRN PRN Reason: ANXIETY Morphine Sulfate (Morphine Oral Concentrate*) 5 mg SL Q2H PRN PRN Reason: PAIN Vital Signs 10/20/16 10/21/16 10/21/16 13:45 01:43 05:22 Temperature 98.5 F Pulse Rate 80 85 Respiratory 20 18 24 Rate Blood Pressure 137/58 (mmHg) O2 Sat by Pulse 95 Oximetry Oxygen Devices in Use Now: Nasal Cannula Appearance: elderly female laying in bed unresponsive, appears to have apneic breathing Eyes: PERRLA Respiratory: Symmetrical Chest Expansion and Respiratory Effort, Clear to Auscultation Cardiovascular: NL Sounds; No Murmurs; No JVD, RRR Skin: - - warm, dry Neurological: - - unresponsive Result Diagrams: 10/18/16 06:59 10/18/16 06:59 Additional Lab and Data: Lab Results 10/17/16 Range/Units 11:30 WBC 15.1 H (3.5-10.8) 10^3/ul RBC 3.54 L (4.0-5.4) 10^6/ul Hgb 10.5 L (12.0-16.0) g/dl Hct 33 L (35-47) % MCV 92 (80-97) fL MCH 30 (27-31) pg MCHC 32 (31-36) g/dl RDW 16 H (10.5-15) % Plt Count 230 (150-450) 10^3/ul MPV 8 (7.4-10.4) um3 Neut % (Auto) 81.7 (38-83) % Lymph % (Auto) 11.1 L (25-47) % [place] % (Auto) 4.7 (1-9) % Eos % (Auto) 0.3 (0-6) % Baso % (Auto) 2.2 H (0-2) % Absolute Neuts (auto) 12.4 H (1.5-7.7) 10^3/ul Absolute Lymphs (auto) 1.7 (1.0-4.8) 10^3/ul Absolute Monos (auto) 0.7 (0-0.8) 10^3/ul Absolute Eos (auto) 0 (0-0.6) 10^3/ul Absolute Basos (auto) 0.3 H (0-0.2) 10^3/ul Absolute Nucleated RBC 0.05 10^3/ul Nucleated RBC % 0.3 Microbiology and Other Data: Microbiology 10/17/16 14:35 Nasal Screen MRSA (PCR)(EVY) - Final Nasal Mrsa Positive Assess/Plan/Problems-Billing Assessment: 86 yo female with a PMH of paroxysmal afib recently taken off AC secondary to severe epistaxis, hx prior CVA, HTN, CKD, Dm-2 who presented to the emergency department 10/17 unresponsive found to have a large hemispheric infarction in the right MCA - Patient Problems (1) CVA (cerebral vascular accident) Comment: - MRI linda showing a large hemispheric infarction in the right MCA - comfort measures only - appears imminent, pt will most likely within the next day or two. (2) Comfort measures only status Comment: - morphine, ativan prn (3) DNR (do not resuscitate) Comment: comfort care (4) DVT prophylaxis Status and Disposition: inpatient with large CVA. Plan for comfort care measures.
--- NOTE | 2016-10-21 15:02 | PN ---
Progress Note - Progress Note Note: Several family members at the bedside. Patient appears comfortable. Shallow breathing with periods of apnea. Does open her eyes intermittently but no eye contact or meaningful interaction. appears imminent.
--- NOTE | 2016-10-22 09:22 | PN ---
Subjective Date of Service: 10/22/16 Interval History: Patient resting comfortably in bed. Family at bedside. They feel she looks comfortable but did state she had an episode of chills earlier. Patient has been mostly unresponsive this morning. No acute concerns from family or nursing at this time. Family History: Unchanged from Admission Social History: Unchanged from Admission Past Medical History: Unchanged from Admission Objective Active Medications: Atropine Sulfate (Atropine 1% (Oral/Sl)*) 2 drop SL Q2H PRN PRN Reason: DISCOMFORT Lorazepam (Ativan Tab(*)) 1 mg PO Q6H PRN PRN Reason: ANXIETY Morphine Sulfate (Morphine Oral Concentrate*) 5 mg SL Q2H PRN PRN Reason: PAIN Vital Signs 10/21/16 20:00 Respiratory 20 Rate Appearance: Elderly female, lying in bed, in NAD, unresponsive to verbal and tactile stimuli. Limited examination per family, as patient is comfort care Respiratory: Symmetrical Chest Expansion and Respiratory Effort, Clear to Auscultation Cardiovascular: RRR Neurological: - - unresponsive Lines/Tubes/Other Access: Clean, Dry and Intact Rojas - clear andreas urine Result Diagrams: 10/18/16 06:59 10/18/16 06:59 Additional Lab and Data: Lab Results 10/17/16 Range/Units 11:30 WBC 15.1 H (3.5-10.8) 10^3/ul RBC 3.54 L (4.0-5.4) 10^6/ul Hgb 10.5 L (12.0-16.0) g/dl Hct 33 L (35-47) % MCV 92 (80-97) fL MCH 30 (27-31) pg MCHC 32 (31-36) g/dl RDW 16 H (10.5-15) % Plt Count 230 (150-450) 10^3/ul MPV 8 (7.4-10.4) um3 Neut % (Auto) 81.7 (38-83) % Lymph % (Auto) 11.1 L (25-47) % [place] % (Auto) 4.7 (1-9) % Eos % (Auto) 0.3 (0-6) % Baso % (Auto) 2.2 H (0-2) % Absolute Neuts (auto) 12.4 H (1.5-7.7) 10^3/ul Absolute Lymphs (auto) 1.7 (1.0-4.8) 10^3/ul Absolute Monos (auto) 0.7 (0-0.8) 10^3/ul Absolute Eos (auto) 0 (0-0.6) 10^3/ul Absolute Basos (auto) 0.3 H (0-0.2) 10^3/ul Absolute Nucleated RBC 0.05 10^3/ul Nucleated RBC % 0.3 Microbiology and Other Data: Microbiology 10/17/16 14:35 Nasal Screen MRSA (PCR)(EVY) - Final Nasal Mrsa Positive Assess/Plan/Problems-Billing Assessment: 86 yo female with a PMH of paroxysmal afib recently taken off AC secondary to severe epistaxis, hx prior CVA, HTN, CKD, DM-2 who presented to the emergency department 10/17 unresponsive found to have a large hemispheric infarction in the right MCA. - Patient Problems (1) CVA (cerebral vascular accident) Code(s): I63.9 - CEREBRAL INFARCTION, UNSPECIFIED Comment: MRI linda showing a large hemispheric infarction in the right MCA. Comfort measures only - anticipate in the next few days. (2) Comfort measures only status Code(s): Z51.5 - ENCOUNTER FOR PALLIATIVE CARE Comment: S/p large hemispheric infarction Continue supportive care, PRN morphine and ativan (3) DVT prophylaxis Comment: Contraindicated in end of life care (4) DNR (do not resuscitate) Comment: DNR/DNI No artificial nutrition Status and Disposition: Inpatient with large CVA. Plan for comfort care measures.
--- NOTE | 2016-10-23 13:03 | PN ---
Subjective Date of Service: 10/23/16 Interval History: Family at bedside. Patient resting comfortably in bed, demonstrating Luis Eduardo- Stoke respirations. Patient does open eyes but does not have meaningful gaze or eye contact. She is withdrawing from painful stimuli. Family feels she is comfortable and felt as if she was able to recognize other family members last evening. Family History: Unchanged from Admission Social History: Unchanged from Admission Past Medical History: Unchanged from Admission Objective Active Medications: Atropine Sulfate (Atropine 1% (Oral/Sl)*) 2 drop SL Q2H PRN PRN Reason: DISCOMFORT Lorazepam (Ativan Tab(*)) 1 mg PO Q6H PRN PRN Reason: ANXIETY Morphine Sulfate (Morphine Oral Concentrate*) 5 mg SL Q2H PRN PRN Reason: PAIN Vital Signs 10/22/16 10/23/16 20:00 08:00 Respiratory 18 26 Rate Oxygen Devices in Use Now: Nasal Cannula Appearance: Elderly female, lying in bed, Luis Eduardo-Hill respirations, in NAD Respiratory: Symmetrical Chest Expansion and Respiratory Effort, Clear to Auscultation Cardiovascular: NL Sounds; No Murmurs; No JVD, RRR Extremities: No Edema Neurological: - - unresponsive Lines/Tubes/Other Access: Clean, Dry and Intact Rojas - dark andreas urine Result Diagrams: 10/18/16 06:59 10/18/16 06:59 Additional Lab and Data: Lab Results 10/17/16 Range/Units 11:30 WBC 15.1 H (3.5-10.8) 10^3/ul RBC 3.54 L (4.0-5.4) 10^6/ul Hgb 10.5 L (12.0-16.0) g/dl Hct 33 L (35-47) % MCV 92 (80-97) fL MCH 30 (27-31) pg MCHC 32 (31-36) g/dl RDW 16 H (10.5-15) % Plt Count 230 (150-450) 10^3/ul MPV 8 (7.4-10.4) um3 Neut % (Auto) 81.7 (38-83) % Lymph % (Auto) 11.1 L (25-47) % [place] % (Auto) 4.7 (1-9) % Eos % (Auto) 0.3 (0-6) % Baso % (Auto) 2.2 H (0-2) % Absolute Neuts (auto) 12.4 H (1.5-7.7) 10^3/ul Absolute Lymphs (auto) 1.7 (1.0-4.8) 10^3/ul Absolute Monos (auto) 0.7 (0-0.8) 10^3/ul Absolute Eos (auto) 0 (0-0.6) 10^3/ul Absolute Basos (auto) 0.3 H (0-0.2) 10^3/ul Absolute Nucleated RBC 0.05 10^3/ul Nucleated RBC % 0.3 Microbiology and Other Data: Microbiology 10/17/16 14:35 Nasal Screen MRSA (PCR)(EVY) - Final Nasal Mrsa Positive Assess/Plan/Problems-Billing Assessment: 86 yo female with a PMH of paroxysmal afib recently taken off AC secondary to severe epistaxis, hx prior CVA, HTN, CKD, DM-2 who presented to the emergency department 10/17 unresponsive found to have a large hemispheric infarction in the right MCA. - Patient Problems (1) CVA (cerebral vascular accident) Code(s): I63.9 - CEREBRAL INFARCTION, UNSPECIFIED Comment: MRI linda showing a large hemispheric infarction in the right MCA. Comfort measures only - anticipate in the next few days. (2) Comfort measures only status Code(s): Z51.5 - ENCOUNTER FOR PALLIATIVE CARE Comment: S/p large hemispheric infarction Continue supportive care, PRN morphine and ativan (3) DVT prophylaxis Comment: Contraindicated in end of life care (4) DNR (do not resuscitate) Comment: DNR/DNI No artificial nutrition Status and Disposition: Inpatient with large CVA. Plan for comfort care measures.
--- NOTE | 2016-10-24 10:38 | PN ---
Subjective Date of Service: 10/24/16 Interval History: Family in room. They report patient opened her eyes earlier when family was here but then became more somnolent. Deny any signs/symptoms of discomfort in patient at this time. No nursing concerns. Family History: Unchanged from Admission Social History: Unchanged from Admission Past Medical History: Unchanged from Admission Objective Active Medications: Atropine Sulfate (Atropine 1% (Oral/Sl)*) 2 drop SL Q2H PRN PRN Reason: DISCOMFORT Lorazepam (Ativan Tab(*)) 1 mg PO Q6H PRN PRN Reason: ANXIETY Morphine Sulfate (Morphine Oral Concentrate*) 5 mg SL Q2H PRN PRN Reason: PAIN Vital Signs 10/23/16 20:00 Respiratory 20 Rate Oxygen Devices in Use Now: Nasal Cannula Eyes: PERRLA Respiratory: Symmetrical Chest Expansion and Respiratory Effort, Clear to Auscultation Cardiovascular: RRR Extremities: No Edema Neurological: - - asleep, oriented x 0 Lines/Tubes/Other Access: Clean, Dry and Intact Rojas Result Diagrams: 10/18/16 06:59 10/18/16 06:59 Additional Lab and Data: Lab Results 10/17/16 Range/Units 11:30 WBC 15.1 H (3.5-10.8) 10^3/ul RBC 3.54 L (4.0-5.4) 10^6/ul Hgb 10.5 L (12.0-16.0) g/dl Hct 33 L (35-47) % MCV 92 (80-97) fL MCH 30 (27-31) pg MCHC 32 (31-36) g/dl RDW 16 H (10.5-15) % Plt Count 230 (150-450) 10^3/ul MPV 8 (7.4-10.4) um3 Neut % (Auto) 81.7 (38-83) % Lymph % (Auto) 11.1 L (25-47) % [place] % (Auto) 4.7 (1-9) % Eos % (Auto) 0.3 (0-6) % Baso % (Auto) 2.2 H (0-2) % Absolute Neuts (auto) 12.4 H (1.5-7.7) 10^3/ul Absolute Lymphs (auto) 1.7 (1.0-4.8) 10^3/ul Absolute Monos (auto) 0.7 (0-0.8) 10^3/ul Absolute Eos (auto) 0 (0-0.6) 10^3/ul Absolute Basos (auto) 0.3 H (0-0.2) 10^3/ul Absolute Nucleated RBC 0.05 10^3/ul Nucleated RBC % 0.3 Microbiology and Other Data: Microbiology 10/17/16 14:35 Nasal Screen MRSA (PCR)(EVY) - Final Nasal Mrsa Positive Assess/Plan/Problems-Billing Assessment: 86 yo female with a PMH of paroxysmal afib recently taken off AC secondary to severe epistaxis, hx prior CVA, HTN, CKD, DM-2 who presented to the emergency department 10/17 unresponsive found to have a large hemispheric infarction in the right MCA. - Patient Problems (1) CVA (cerebral vascular accident) Code(s): I63.9 - CEREBRAL INFARCTION, UNSPECIFIED Comment: MRI linda showing a large hemispheric infarction in the right MCA. Comfort measures only - poor prognosis, with Luis Eduardo Hill respirations. Anticipate in the upcoming days. (2) Comfort measures only status Code(s): Z51.5 - ENCOUNTER FOR PALLIATIVE CARE Comment: S/p large hemispheric infarction Continue supportive care, PRN morphine and ativan (3) DVT prophylaxis Comment: Contraindicated in end of life care (4) DNR (do not resuscitate) Comment: DNR/DNI No artificial nutrition Status and Disposition: Inpatient with large CVA. Plan for comfort care measures.
--- NOTE | 2016-10-25 08:56 | PN ---
Subjective Date of Service: 10/25/16 Interval History: Patient seen and examined at bedside. She is unresponsive to verbal and tactile stimuli. No moaning or restlessness noted. Son is at bedside - he has no acute concerns. Family History: Unchanged from Admission Social History: Unchanged from Admission Past Medical History: Unchanged from Admission Objective Active Medications: Atropine Sulfate (Atropine 1% (Oral/Sl)*) 2 drop SL Q2H PRN PRN Reason: DISCOMFORT Lorazepam (Ativan Tab(*)) 1 mg PO Q6H PRN PRN Reason: ANXIETY Morphine Sulfate (Morphine Oral Concentrate*) 5 mg SL Q2H PRN PRN Reason: PAIN Vital Signs 10/24/16 20:00 Respiratory 20 Rate Oxygen Devices in Use Now: Nasal Cannula Appearance: Elderly female patient, lying in bed, appears comfortable, in NAD. Limited assessment as patient was just repositioned and is comfort care Ears/Nose/Mouth/Throat: Clear Oropharnyx Respiratory: Clear to Auscultation Cardiovascular: RRR Extremities: No Edema Neurological: - - sleeping, unresponsive Lines/Tubes/Other Access: Clean, Dry and Intact Rojas Result Diagrams: 10/18/16 06:59 10/18/16 06:59 Additional Lab and Data: Lab Results 10/17/16 Range/Units 11:30 WBC 15.1 H (3.5-10.8) 10^3/ul RBC 3.54 L (4.0-5.4) 10^6/ul Hgb 10.5 L (12.0-16.0) g/dl Hct 33 L (35-47) % MCV 92 (80-97) fL MCH 30 (27-31) pg MCHC 32 (31-36) g/dl RDW 16 H (10.5-15) % Plt Count 230 (150-450) 10^3/ul MPV 8 (7.4-10.4) um3 Neut % (Auto) 81.7 (38-83) % Lymph % (Auto) 11.1 L (25-47) % Aiken % (Auto) 4.7 (1-9) % Eos % (Auto) 0.3 (0-6) % Baso % (Auto) 2.2 H (0-2) % Absolute Neuts (auto) 12.4 H (1.5-7.7) 10^3/ul Absolute Lymphs (auto) 1.7 (1.0-4.8) 10^3/ul Absolute Monos (auto) 0.7 (0-0.8) 10^3/ul Absolute Eos (auto) 0 (0-0.6) 10^3/ul Absolute Basos (auto) 0.3 H (0-0.2) 10^3/ul Absolute Nucleated RBC 0.05 10^3/ul Nucleated RBC % 0.3 Microbiology and Other Data: Microbiology 10/17/16 14:35 Nasal Screen MRSA (PCR)(EVY) - Final Nasal Mrsa Positive Assess/Plan/Problems-Billing Assessment: 86 yo female with a PMH of paroxysmal afib recently taken off AC secondary to severe epistaxis, hx prior CVA, HTN, CKD, DM-2 who presented to the emergency department 10/17 unresponsive found to have a large hemispheric infarction in the right MCA. - Patient Problems (1) CVA (cerebral vascular accident) Code(s): I63.9 - CEREBRAL INFARCTION, UNSPECIFIED Comment: MRI linda showing a large hemispheric infarction in the right MCA. Comfort measures only - poor prognosis, with Luis Eduardo Hill respirations. Anticipate in the upcoming days. (2) Comfort measures only status Code(s): Z51.5 - ENCOUNTER FOR PALLIATIVE CARE Comment: S/p large hemispheric infarction Continue supportive care, PRN morphine and ativan (3) DVT prophylaxis Comment: Contraindicated in end of life care (4) DNR (do not resuscitate) Comment: DNR/DNI No artificial nutrition Status and Disposition: Inpatient with large CVA. Plan for comfort care measures. Potential transfer to home with hospice; CM/SW following.
[2016-10-25] MEDS: Morphine ORAL CONCENTRATE* 5 MG/0.25 ML ORAL.SYRIN SL PRN (22:19)
[2016-10-26] MEDS: Morphine ORAL CONCENTRATE* 5 MG/0.25 ML ORAL.SYRIN SL PRN ×11 (03:58→23:55)
--- NOTE | 2016-10-26 10:03 | PN ---
Subjective Date of Service: 10/26/16 Interval History: Patient seen and examined at bedside. She appears more restless and is demonstrating Luis Eduardo Hill respirations. Family states that she has required morphine overnight to help keep her more comfortable. Family History: Unchanged from Admission Social History: Unchanged from Admission Past Medical History: Unchanged from Admission Objective Active Medications: Atropine Sulfate (Atropine 1% (Oral/Sl)*) 2 drop SL Q2H PRN PRN Reason: DISCOMFORT Lorazepam (Ativan Tab(*)) 1 mg PO Q6H PRN PRN Reason: ANXIETY Morphine Sulfate (Morphine Oral Concentrate*) 5 mg SL Q2H PRN PRN Reason: PAIN Last Admin: 10/26/16 08:02 Dose: 5 mg Vital Signs 10/25/16 10/25/16 10/26/16 20:00 22:19 00:19 Respiratory 20 28 20 Rate 10/26/16 10/26/16 10/26/16 03:58 05:58 08:02 Respiratory 28 20 20 Rate Appearance: Elderly female patient, lying in bed, restless, Luis Eduardo Hill respirations. Limited examination in a comfort care patient Respiratory: Clear to Auscultation Cardiovascular: NL Sounds; No Murmurs; No JVD, RRR Extremities: No Edema, No Clubbing, Cyanosis Neurological: - - unresponsive Lines/Tubes/Other Access: Clean, Dry and Intact Rojas Result Diagrams: 10/18/16 06:59 10/18/16 06:59 Additional Lab and Data: Lab Results 10/17/16 Range/Units 11:30 WBC 15.1 H (3.5-10.8) 10^3/ul RBC 3.54 L (4.0-5.4) 10^6/ul Hgb 10.5 L (12.0-16.0) g/dl Hct 33 L (35-47) % MCV 92 (80-97) fL MCH 30 (27-31) pg MCHC 32 (31-36) g/dl RDW 16 H (10.5-15) % Plt Count 230 (150-450) 10^3/ul MPV 8 (7.4-10.4) um3 Neut % (Auto) 81.7 (38-83) % Lymph % (Auto) 11.1 L (25-47) % Rush % (Auto) 4.7 (1-9) % Eos % (Auto) 0.3 (0-6) % Baso % (Auto) 2.2 H (0-2) % Absolute Neuts (auto) 12.4 H (1.5-7.7) 10^3/ul Absolute Lymphs (auto) 1.7 (1.0-4.8) 10^3/ul Absolute Monos (auto) 0.7 (0-0.8) 10^3/ul Absolute Eos (auto) 0 (0-0.6) 10^3/ul Absolute Basos (auto) 0.3 H (0-0.2) 10^3/ul Absolute Nucleated RBC 0.05 10^3/ul Nucleated RBC % 0.3 Microbiology and Other Data: Microbiology 10/17/16 14:35 Nasal Screen MRSA (PCR)(EVY) - Final Nasal Mrsa Positive Assess/Plan/Problems-Billing Assessment: 86 yo female with a PMH of paroxysmal afib recently taken off AC secondary to severe epistaxis, hx prior CVA, HTN, CKD, DM-2 who presented to the emergency department 10/17 unresponsive found to have a large hemispheric infarction in the right MCA. - Patient Problems (1) CVA (cerebral vascular accident) Code(s): I63.9 - CEREBRAL INFARCTION, UNSPECIFIED Comment: MRI brain showing a large hemispheric infarction in the right MCA. Comfort measures only - poor prognosis, with Luis Eduardo Hill respirations. (2) Comfort measures only status Code(s): Z51.5 - ENCOUNTER FOR PALLIATIVE CARE Comment: S/p large hemispheric infarction Continue supportive care, PRN morphine and ativan (3) DVT prophylaxis Comment: Contraindicated in end of life care (4) DNR (do not resuscitate) Comment: DNR/DNI No artificial nutrition Status and Disposition: Inpatient with large CVA. Plan for comfort care measures. Plan for home with hospice tomorrow.
[2016-10-26] MEDS: LORazepam TAB(*) 1 MG PO PRN ×3 (14:07→21:52)
[2016-10-27] MEDS: Morphine ORAL CONCENTRATE* 5 MG/0.25 ML ORAL.SYRIN SL PRN ×11 (00:54→11:37)
[2016-10-27] MEDS: LORazepam TAB(*) 1 MG PO PRN ×2 (01:55→06:15)
--- NOTE | 2016-10-27 05:41 | DS ---
MEDICINE DISCHARGE SUMMARY: DATE OF ADMISSION: 10/17/16 DATE OF DISCHARGE: 10/27/16 PRIMARY CARE PHYSICIAN: Dr. Cruz. PROVIDER: Lazara Mera NP ATTENDING PHYSICIAN: Dr. Lisa Dominguez * (as dictated by Lazara Mera NP) CONSULTING PROVIDERS: 1. Dr. Worley of Neurology. 2. Dr. Paula Castelan of Palliative Care. PRIMARY DISCHARGE DIAGNOSES: 1. Cerebrovascular accident to right middle cerebral artery. 2. Comfort care measures only. SECONDARY DISCHARGE DIAGNOSES: 1. History of paroxysmal atrial fibrillation. 2. History of coronary artery disease. 3. Chronic kidney disease. 4. Hypertension. 5. Hyperlipidemia. 6. Ogc-gwgmgaz-xqofgaspo diabetes. MEDICATIONS AT DISCHARGE: 1. Morphine oral concentrate 5 mg sublingual q.1 hour p.r.n. 2. Lorazepam 1 mg sublingual q.4 hours p.r.n. 3. Atropine 1% oral sublingual 2 drops sublingual q.2 hours p.r.n. DIAGNOSTIC STUDIES DURING THIS ADMISSION: Carotid Doppler shows no evidence of a hemodynamically significant stenosis. MRI of the brain back on 10/17/16 shows large hemispheric infarction in distribution of the right MCA. Transthoracic echocardiogram, 10/17/16, shows EF of 50% to 55%, diffuse global hypokinesis of the left ventricle, and left ventricular systolic function in the lower limits of normal. HOSPITAL COURSE OF STAY: For full details, please refer to the H and P provided by VIOLETA Coe. In summary, Ms. Gracia is an 86-year-old female with the past medical history as stated above, who was recently removed from anticoagulation secondary to severe epistaxis. She presented to the emergency department on August 16 and found to have a large hemispheric infarction in the right MCA. The patient was evaluated by Neurology and the patient was unfortunately outside of the window for tPA when she presented to the ED. 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 The patient's prognosis was discussed with the family and they felt that the patient had made her expressed wishes known that she would not desire artificial nutrition. Palliative Care was consulted and the family met at length with Dr. Castelan regarding the patient's prognosis and her inability to safely swallow and that without IV hydration or artificial nutrition that her life expectancy would be limited. The patient was made comfort care measures only and has been maintained on comfort care here in the hospital. She has remained relatively stable. Though she does open her eyes, there is no meaningful interaction. The patient has nonpurposeful movements and has demonstrated Luis Eduardo- Hill breathing. She has been on comfort care for approximately 1 week here in the hospital and the family was receptive and would like to take her home with hospice with 24-hour care. This has been arranged and there was a plan for discharge to home with hospice signed on for 10/27/16 in the morning. The patient again has been made comfortable with p.r.n. morphine and Ativan and her family is satisfied with her condition, but wished to take her home if possible. CONCERNS AT DISCHARGE: The patient will be discharged to home with hospice sign -on on 10/27/16. DIET: The patient should be n.p.o. as she likely has swallowing dysfunction and has had no formal swallow eval. ACTIVITY: Positions for comfort. CONDITION: Guarded. DISPOSITION: To home with hospice. Discharge is in preparation for discharge on 10/27/16. Nursing has been instructed to call if new orders are needed or for changes in the patient's condition. TIME SPENT: Time spent on this discharge was approximately 45 minutes. Again, this is only a brief summary of the patient's hospital course of stay. For full details, please refer to the full H and P and medical record. If you have any further questions or need further assistance, please feel free to contact me at [phone]. LAZARA MERA NP CC: Dr. Cruz; Dr. Worley; Dr. Castelan * [id number]/[facility] #: [id number] [facility]OSPITALNakita
[2016-10-27] MEDS ORDERED: Scopolamine 1.5 mg* PATCH TRANSDERM SCH (10:00)
[2016-10-27] MEDS ORDERED: Morphine ORAL CONCENTRATE* 5 MG/0.25 ML ORAL.SYRIN SL PRN (12:43)
--- NOTE | 2016-10-28 01:04 | DS ---
SUMMARY: DATE OF ADMISSION: 10/17/16 DATE OF : 10/27/16 PRIMARY CARE PROVIDER: Dr. Cruz. CONSULTING PALLIATIVE CARE PHYSICIAN: Paula Castelan MD. CONSULTING NEUROLOGIST: Josefa Worley MD. DISCHARGING PROVIDER: VIOLETA Smith. SUPERVISING PHYSICIAN: Lisa Dominguez MD.* (DICTATED BY VIOLETA SMITH) PRIMARY DIAGNOSIS: Large right-sided ischemic cerebrovascular accident affecting MCA distribution. SECONDARY DIAGNOSES: 1. History of paroxysmal atrial fibrillation. 2. History of coronary artery disease. 3. Chronic kidney disease. 4. Hypertension. 5. Hyperlipidemia. 6. Xfa-gagokzv-bowpizsse diabetes. HOSPITAL IMAGIN. CT of the brain, 10/17/16, showed what was likely an old infarct measuring 1.7 x 3.8 cm involving the left frontal lobe and loss of jeffery white matter differentiation involving the right subinsular cortex showing potential for acute subacute infarct. 2. Chest x-ray, 10/17/16, evidence of mild pulmonary venous congestion. 3. MRI of the brain, 10/17/16, showed a large hemispheric infarct in the distribution of the right MCA. 4. Carotid Doppler study, 10/18/16, showed no evidence of significant stenosis. 5. EKG showed a sinus rhythm. 6. Transthoracic echo showed left ventricular ejection fraction 50% to 55% with some mild diffuse global hypokinesis, no significant valvular disease appreciated. HOSPITAL COURSE: This was an 86-year-old female with a history of paroxysmal atrial fibrillation and rqh-pidwxqb-qsjfyiogv diabetes who was admitted to the hospital largely nonresponsive. The patient had been admitted to [facility] approximately 2 weeks prior with severe epistaxis to the point that she required 2 units of packed red blood cells for the blood loss associated with her epistaxis. The patient had been anticoagulated up until that point with Coumadin, at which point it was recommended that her anticoagulation be discontinued. She had a history of an old left frontal infarct that she had largely no significant residual deficit from. She lived with her son and sobjbdcq-nu-ajv who attempted to awake her for breakfast in the morning and found that she was nonarousable. They had heard her in the middle of the night getting up to use the restroom, and that was the last time that she had been seen normal. When she reached the emergency department, a CT was completed, which showed evidence of likely a large distribution of acute ischemic infarct. Neurologist, Dr. Worley consulted at that time. The patient was admitted to the hospital at that time with hope that she may have some recovery in her level of consciousness. At the time of the admission, the patient was able to follow some commands intermittently but was largely unresponsive and not alert. This remained largely unchanged throughout her hospital stay. She had intermittent periods of alertness but was unable to speak or participate in swallow evaluation. She had evidence of deep hemiparesis on the left side. After approximately 48 hours of hospital stay, it seemed unlikely the patient would require any significant level of prior functioning and I began to discuss palliative measures with the patient's family. The patient was evaluated by palliative care physician, Dr. Paula Castelan, who agreed that she was eligible for hospice services. Plan were subsequently initiated to transfer to comfort only measures and to be discharged to home with hospice care services and care largely provided by her numerous family members. Approximately 24 hours prior to planned transfer home, her morphine needs increased significantly as she was somewhat agitated and tachypneic. She developed significant crackles on lung exam and family noted some difficulty handling her secretions. The morning of the plan to transfer, they were concerned of her imminent prognosis and that she may not tolerate the transfer home. Decision was made for her to stay in the hospital for additional care. Her morphine and scopolamine doses were appropriately titrated up and the patient passed in the presence of family. VIOLETA SMITH CC: Dr. Cruz* [id number]/[facility] #: [id number] NA
[2016-10-30] MEDS ORDERED: Scopolamine PATCH Remove* 1 NOTE MISC PATCH OFF SCH (10:00)
== END 2016-10-27 13:00 | disposition expired | DRG 65 ==
LOC: ED 11:18 → MEDTELE 14:01 → MED 10-25 18:53
PROVIDERS: ADMIT Internal Medicine; ATTEND Internal Medicine
DX: I63.511 Cerebral infarction due to unspecified occlusion or stenosis of right middle cerebral artery (principal); G81.94 Hemiplegia, unspecified affecting left nondominant side; E11.22 Type 2 diabetes mellitus with diabetic chronic kidney disease; I13.10 Hypertensive heart and chronic kidney disease without heart failure, with stage 1 through stage 4 chronic kidney disease, or unspecified chronic kidney disease; I25.10 Atherosclerotic heart disease of native coronary artery without angina pectoris; N18.3 Chronic kidney disease, stage 3 (moderate); I48.0 Paroxysmal atrial fibrillation; Z66 Do not resuscitate; Z79.84 Long term (current) use of oral hypoglycemic drugs; Z79.82 Long term (current) use of aspirin; Z79.899 Other long term (current) drug therapy
CPT/HCPCS: 36415; 70450; 70551; 71010; 80048; 80053; 81003; 81015; 83605; 84145; 84484; 85025; 85610; 86140; 87641; 93005; 93306; 93880; 94760; A9270-GY